=== PATIENT | female | born 1935 | race Caucasian/White ===

== ENCOUNTER 2016-10-03 17:34 | Emergency (ER) | payer MEDICARE, OTHER ==
[2016-10-03 17:53] VITALS: TEMP 99.1; BMI 26.6
[2016-10-03] MEDS ORDERED: MORPHINE 4 MG/ML INJECTION IV ONE (18:25)
[2016-10-03] MEDS ORDERED: ONDANSETRON HCL 4 MG/2 ML VIAL IV ONE (18:25)
[2016-10-03] MEDS ORDERED: NS 1,000 ML IV ONE (18:25)
[2016-10-03 19:10] LABS: AUTOMATED BASOPHIL 0.5 % (0-2); AUTOMATED EOSINOPHIL 0.7 % (0-5); AUTOMATED MONOCYTE 5.7 % (3-10); AUTOMATED NEUTROPHIL 78.1 % (45-76)
[2016-10-03 19:16] LABS: BLOOD UREA NITROGEN 14 MG/DL (7-17); CALC CORRECTED 8.9 MG/DL (8.4-10.2); CALCIUM 8.6 MG/DL (8.4-10.2); CALCULATED OSMOLALITY 258 MOs/Kg (270-290); CHLORIDE 96 mEq/L (98-107); CPK TOTAL WITH POSSIBLE MB 77 IU/L (30-134); GLUCOSE 143 mg/dL (70-99); PARTIAL THROMB. TIME 24.6 SEC (22-35); SODIUM LEVEL 132 mEq/L (137-146); TOTAL PROTEIN 6.6 G/DL (6.3-8.2)
--- NOTE | 2016-10-03 19:46 | DIRPT ---
CLINICAL DATA: Left calf pain for 1 month. Swelling for 2 weeks. EXAM: LEFT LOWER EXTREMITY VENOUS DOPPLER ULTRASOUND TECHNIQUE: Zhou-scale sonography with graded compression, as well as color Doppler and duplex ultrasound were performed to evaluate the lower extremity deep venous systems from the level of the common femoral vein and including the common femoral, femoral, profunda femoral, popliteal and calf veins including the posterior tibial, peroneal and gastrocnemius veins when visible. The superficial great saphenous vein was also interrogated. Spectral Doppler was utilized to evaluate flow at rest and with distal augmentation maneuvers in the common femoral, femoral and popliteal veins. COMPARISON: None. FINDINGS: Contralateral Common Femoral Vein: Respiratory phasicity is normal and symmetric with the symptomatic side. No evidence of thrombus. Normal compressibility. Common Femoral Vein: No evidence of thrombus. Normal compressibility, respiratory phasicity and response to augmentation. Saphenofemoral Junction: No evidence of thrombus. Normal compressibility and flow on color Doppler imaging. Profunda Femoral Vein: No evidence of thrombus. Normal compressibility and flow on color Doppler imaging. Femoral Vein: No evidence of thrombus. Normal compressibility, respiratory phasicity and response to augmentation. Popliteal Vein: No evidence of thrombus. Normal compressibility, respiratory phasicity and response to augmentation. Calf Veins: No evidence of thrombus. Normal compressibility and flow on color Doppler imaging. Superficial Great Saphenous Vein: No evidence of thrombus. Normal compressibility and flow on color Doppler imaging. Venous Reflux: None. Other Findings: There is subcutaneous edema in the left calf in the area of clinical concern. IMPRESSION: No evidence of left lower extremity deep venous thrombosis. Soft tissue edema in the calf in the area of clinical concern. Electronically Signed By: Angie Swain M.D. On: 10/03/2016 19:43
[2016-10-03 20:23] VITALS: BP 139/66; PULSE 81
[2016-10-03 20:31] LABS: LEUKOCYTES/URINE TRACE (NEGATIVE); RBC/URINE 0-2 (0-5); URINE OCCULT BLOOD NEG (NEG/TRACE)
[2016-10-03 20:34] LABS: NITRITE/URINE POS (NEGATIVE)
[2016-10-03] MEDS ORDERED: CEFTRIAXONE 1 GM in D5W 100 ML IV ONE (20:35)
--- NOTE | 2016-10-03 20:39 | EDPRACDOC ---
- General Information Chief Complaint: Lower Leg Pain Stated Complaint: LT LEG PAIN & SWELLING NO RECENT INJURY Time Seen by Provider: 10/03/16 18:18 Information Source: Patient Mode Of Arrival: Car Home Medications: Home Medications Cholecalciferol [Vitamin D3 (cholecalciferol)] 1,000 units PO DAILY 06/23/13 Flaxseed Oil [Flax Seed Oil] 2,000 mg PO TID 06/23/13 Omeprazole [Prilosec] 40 mg PO DAILY 06/23/13 Aspirin (Enteric Coated) [Halfprin] 81 mg PO DAILY 07/22/14 Calcium Carbonate [Caltrate 600] 600 mg PO BID 07/22/14 Ginkgo Biloba 120 mg PO DAILY 07/22/14 Pramipexole Di-HCl [Mirapex] 1 - 2 mg PO HS 07/22/14 Verapamil HCl [Verelan Pm] 300 mg PO DAILY 07/22/14 Vitamins, Multiple [Unicap] 1 cap PO DAILY 07/22/14 Duloxetine HCl 60 mg PO DAILY 11/27/15 Gabapentin 400 mg PO QHS 11/27/15 Losartan Potassium 50 mg PO DAILY 11/27/15 Tramadol HCl 50 mg PO DAILY PRN 11/27/15 Vitamin E Mixed [Vitamin E] 1,000 unit PO DAILY 11/27/15 Cephalexin Monohydrate [Keflex] 500 mg PO Q6H #28 cap 10/03/16 Levothyroxine [Synthroid, Levoxyl] 50 mcg PO DAILY 10/03/16 Prednisone [Sterapred] 5 mg PO DIR 10/03/16 Tramadol HCl [Ultram] 50 mg PO Q6H #14 tab 10/03/16 Allergies/Adverse Reactions: Allergies Allergy/AdvReac Type Severity Reaction Status Date / Time Sulfa (Sulfonamide Allergy Unknown Rash-Genera Verified 07/22/14 20:43 Antibiotics) lized dextromethorphan Allergy Unknown Verified 11/27/15 14:38 doxylamine Allergy Unknown Verified 11/27/15 14:38 NSAIDS (Non-Steroidal Allergy See Verified 07/23/14 18:37 Anti-Inflamma Comments promethazine HCl AdvReac Confusion Verified 07/22/14 20:43 [From Phenergan] - History of Present Illness Onset: JULY HPI: PT PRESENTS WITH LEFT LOWER LEG SWELLING, REDNESS AND PAIN. STATES THIS HAS BEEN ONGOING FOR SEVERAL MONTHS. STATES SHE HAS BEEN SEEN BY A DOCTOR AT [place] WHO INJECTED THE KNEE BUT THE PAIN IS NOT GETTING ANY BETTER. DENIES FEVER, CHILLS, NAUSEA OR VOMITING Mechanism: Reports: Unknown Circumstances: Reports: Unknown History of: Reports: None Last Tetanus: Unknown Severity: Reports: Moderate Able to Bear Weight: Limited Associated Signs & Symptoms: Reports: Swelling Pain In: Reports: Foot, Ankle, Leg ED Past Medical History - History Reviewed Yes Nurses notes reviewed and agree except as marked - Patient Medical History Cardiac History: Reports: Hypertension, Valvular Heart Disease, Syncope Respiratory History: Reports: Emphysema (?) GI/ History: Reports: Urinary Tract Infection Musculoskeletal History: Reports: Arthritis Psychological History: Reports: Anxiety. Denies: Depression, Substance Use Disorder Systemic History: Reports: Cancer (BREAST LUNG , RT MASECTOMY), Anemia, Hypothyroidism Surgical History: Reports: Hysterectomy (Age 60's), Tonsillectomy/Adnoidectomy - Family Medical History Reports: Hypertension (Mother), Diabetes (Brothers), Cancer (2 Sisters-breast, Mother), Stroke (Mother), Cardiac Disorders (Brothers, Sisters) - Social Medical History Smoking Status: Never smoker Social History: Denies: Substance Use Disorder EDM Review of Systems - Review of Systems ROS Negative Except as Marked: Yes All systems reviewed and were negative except as marked - Physical Exam Constitutional: Alert Oriented to: Time, Person, Place Last recorded Vital Signs: Last Vital Signs Temp 99.1 F 10/03/16 17:43 Pulse 81 10/03/16 20:23 Resp 20 10/03/16 20:23 BP 139/66 10/03/16 20:23 Pulse Ox 93 10/03/16 20:23 Oxygen Pulse Oxygen Saturation 93 O2 Device Room Air Oxygen Flow Rate Fraction of Inspired Oxygen ( FIO2) - HEENT Head: Normal ( normocephalic) Eye Exam: Normal (PERRL, EOMI, Sclera white) Oropharynx: Normal (Pharynx:Moist without exudate,Gums-no swelling) Tympanic Membrane: Normal Nose: No Symptoms Reported (septum midline) Neck: Normal (FROM, trachea at midline) - Respiratory/Cardiovascular Respiratory: Normal - CTA (BBS clear to auscultation without adventitious sounds ) Cardiovascular: Normal (RRR without murmur, gallop or rub) - GI Auscultation: Normal (NABS) Palpation: Normal (Soft,No rebound or guarding, non distended) Tenderness: Non tender Molina's Sign: Negative Rectal Exam: Deferred - Musculoskeletal Back: Normal (Non-Tender) Extremities: Pedal Edema (2+ PITTING), Pedal Pulse (2+) - Integumentary Skin: Normal, Warm, Dry Lymphatics: Normal (no adenopathy) - Neurologic Memory Impaired: Normal Motor Function: Normal (Normal tone, Pulses 2+ No cyanosis or edema, FROM) Cranial Nerve: Normal (CN II-X11 intact sensation, strength 5/5) Cerebellar: Normal Mood Description: Normal Perception: Normal - Differential Diagnosis Other - Results 10/03/16 18:42 10/03/16 18:42 WBC 10.0 xk/uL (3.8-10.8) 10/03/16 18:42 RBC 4.04 xM/uL (4.20-5.40) L 10/03/16 18:42 Hgb 11.6 g/dL (12.0-16.0) L 10/03/16 18:42 Hct 34.6 % (36-47) L 10/03/16 18:42 MCV 86 fL (81-99) 10/03/16 18:42 MCH 28.6 pg (27-32) 10/03/16 18:42 MCHC 33.4 g/dl (33-36) 10/03/16 18:42 RDW 14.4 % (11.5-14.5) 10/03/16 18:42 Plt Count 284 xk/uL (130-400) 10/03/16 18:42 MPV 7.0 fL (7.4-10.4) L 10/03/16 18:42 Neut % (Auto) 78.1 % (45-76) H 10/03/16 18:42 Lymph % (Auto) 15.0 % (17-44) L 10/03/16 18:42 [place] % (Auto) 5.7 % (3-10) 10/03/16 18:42 Eos % (Auto) 0.7 % (0-5) 10/03/16 18:42 Baso % (Auto) 0.5 % (0-2) 10/03/16 18:42 Absolute Neuts (auto) 7.80 xk/uL (1.7-8.2) 10/03/16 18:42 Absolute Lymphs (auto) 1.50 xk/uL (0.65-4.75) 10/03/16 18:42 PT 10.4 SEC (9.2-11.2) 10/03/16 18:42 INR 1.0 10/03/16 18:42 APTT 24.6 SEC (22-35) 10/03/16 18:42 Sodium 132 mEq/L (137-146) L 10/03/16 18:42 Potassium 4.1 mEq/L (3.5-5.1) 10/03/16 18:42 Chloride 96 mEq/L (98-107) L 10/03/16 18:42 Carbon Dioxide 26 mMOL/L (22-33) 10/03/16 18:42 Anion Gap 14 mEq/L (8-16) 10/03/16 18:42 BUN 14 MG/DL (7-17) 10/03/16 18:42 Creatinine 0.70 MG/DL (0.52-1.04) 10/03/16 18:42 Estimated GFR (MDRD) > 60 mL/min (>=60) 10/03/16 18:42 Glucose 143 mg/dL (70-99) H 10/03/16 18:42 Calculated Osmolality 258 MOs/Kg (270-290) L 10/03/16 18:42 Calcium 8.6 MG/DL (8.4-10.2) 10/03/16 18:42 Corrected Calcium 8.9 MG/DL (8.4-10.2) 10/03/16 18:42 Total Bilirubin 0.4 MG/DL (0.2-1.3) 10/03/16 18:42 AST 27 IU/L (14-36) 10/03/16 18:42 ALT 29 IU/L (9-52) 10/03/16 18:42 Alkaline Phosphatase 135 IU/L (55-165) 10/03/16 18:42 Creatine Kinase 77 IU/L (30-134) 10/03/16 18:42 Troponin I < 0.01 ng/mL (<.04) 10/03/16 18:42 Cxc-R-[id number] Pept 151 pg/mL (0-1800) 10/03/16 18:42 Total Protein 6.6 G/DL (6.3-8.2) 10/03/16 18:42 Albumin 3.7 G/DL (3.5-5.0) 10/03/16 18:42 Urine Color Pale yellow 10/03/16 20:15 Urine Clarity Clear 10/03/16 20:15 Urine pH 7.0 (5.0-8.0) 10/03/16 20:15 Ur Specific [place] 1.005 (1.003-1.035) 10/03/16 20:15 Urine Protein Neg (NEG/TRACE) 10/03/16 20:15 Urine Glucose (UA) Neg (NEGATIVE) 10/03/16 20:15 Urine Ketones Neg (NEGATIVE) 10/03/16 20:15 Urine Occult Blood Neg (NEG/TRACE) 10/03/16 20:15 Urine Nitrite Pos (NEGATIVE) H 10/03/16 20:15 Urine Bilirubin Neg (NEGATIVE) 10/03/16 20:15 Urine Urobilinogen <2.0 MG/DL (0-1) 10/03/16 20:15 Ur Leukocyte Esterase Trace (NEGATIVE) H 10/03/16 20:15 Urine RBC 0-2 (0-5) 10/03/16 20:15 Urine WBC 2-5 (0-5) 10/03/16 20:15 Ur Epithelial Cells 1+ 10/03/16 20:15 Urine Bacteria 2+ (NEG/FEW) H 10/03/16 20:15 Lab Results 10/03/16 10/03/16 10/03/16 20:15 18:42 18:42 WBC 10.0 RBC 4.04 L Hgb 11.6 L Hct 34.6 L MCV 86 MCH 28.6 MCHC 33.4 RDW 14.4 Plt Count 284 MPV 7.0 L Neut % (Auto) 78.1 H Lymph % (Auto) 15.0 L [place] % (Auto) 5.7 Eos % (Auto) 0.7 Baso % (Auto) 0.5 Absolute Neuts (auto) 7.80 Absolute Lymphs (auto) 1.50 PT 10.4 INR 1.0 APTT 24.6 Sodium Potassium Chloride Carbon Dioxide Anion Gap BUN Creatinine Estimated GFR (MDRD) Glucose Calculated Osmolality Calcium Corrected Calcium Total Bilirubin AST ALT Alkaline Phosphatase Creatine Kinase Troponin I [id number] Pept Total Protein Albumin Urine Color Pale yellow Urine Clarity Clear Urine pH 7.0 Ur Specific [place] 1.005 Urine Protein Neg Urine Glucose (UA) Neg Urine Ketones Neg Urine Occult Blood Neg Urine Nitrite Pos H Urine Bilirubin Neg Urine Urobilinogen <2.0 Ur Leukocyte Esterase Trace H Urine RBC 0-2 Urine WBC 2-5 Ur Epithelial Cells 1+ Urine Bacteria 2+ H 10/03/16 18:42 WBC RBC Hgb Hct MCV MCH MCHC RDW Plt Count MPV Neut % (Auto) Lymph % (Auto) [place] % (Auto) Eos % (Auto) Baso % (Auto) Absolute Neuts (auto) Absolute Lymphs (auto) PT INR APTT Sodium 132 L Potassium 4.1 Chloride 96 L Carbon Dioxide 26 Anion Gap 14 BUN 14 Creatinine 0.70 Estimated GFR (MDRD) > 60 Glucose 143 H Calculated Osmolality 258 L Calcium 8.6 Corrected Calcium 8.9 Total Bilirubin 0.4 AST 27 ALT 29 Alkaline Phosphatase 135 Creatine Kinase 77 Troponin I < 0.01 Iol-[id number]-Ccdkqnhwpvp Pept 151 Total Protein 6.6 Albumin 3.7 Urine Color Urine Clarity Urine pH Ur Specific [place] Urine Protein Urine Glucose (UA) Urine Ketones Urine Occult Blood Urine Nitrite Urine Bilirubin Urine Urobilinogen Ur Leukocyte Esterase Urine RBC Urine WBC Ur Epithelial Cells Urine Bacteria - EKG EKG #1 EKG Time: 20:07 -: Yes EKG interpreted by me Rate: bpm: 82 [place]: Normal Rhythm: NSR Block: None Hypertrophy: None ST: Normal Decision Time to Discharge: 21:35 - Departure Disposition: Home Condition: Stable Final Diagnosis: Cellulitis Qualifiers: Site of cellulitis: extremity Site of cellulitis of extremity: lower extremity Laterality: left Qualified Code(s): L03.116 - Cellulitis of left lower limb Osteoarthritis Qualifiers: Osteoarthritis location: knee Osteoarthritis type: unspecified Laterality: left Qualified Code(s): M17.12 - Unilateral primary osteoarthritis, left knee Instructions: Cellulitis (ED), Osteoarthritis (ED) Education/Counseling Given To: Patient Education/Counseling Given Regarding: Diagnosis, Treatment, Prognosis, Follow Up Referrals: Adriano Raman MD [Primary Care Provider] - One Week Federico Dowling DO [Staff Physician] - One Week Prescriptions: New Cephalexin Monohydrate [Keflex] 500 mg PO Q6H #28 cap Tramadol HCl [Ultram] 50 mg PO Q6H #14 tab No Action Flaxseed Oil [Flax Seed Oil] 2,000 mg PO TID Cholecalciferol [Vitamin D3 (cholecalciferol)] 1,000 units PO DAILY Omeprazole [Prilosec] 40 mg PO DAILY Calcium Carbonate [Caltrate 600] 600 mg PO BID Vitamins, Multiple [Unicap] 1 cap PO DAILY Aspirin (Enteric Coated) [Halfprin] 81 mg PO DAILY Pramipexole Di-HCl [Mirapex] 1 - 2 mg PO HS Verapamil HCl [Verelan Pm] 300 mg PO DAILY Ginkgo Biloba 120 mg PO DAILY Vitamin E Mixed [Vitamin E] 1,000 unit PO DAILY Tramadol HCl 50 mg PO DAILY PRN PRN Reason: Pain Losartan Potassium 50 mg PO DAILY Gabapentin 400 mg PO QHS Duloxetine HCl 60 mg PO DAILY Levothyroxine [Synthroid, Levoxyl] 50 mcg PO DAILY Prednisone [Sterapred] 5 mg PO DIR Additional Instructions: ICE AND ELEVATION IS VERY IMPORTANT. FOLLOW UP WITH ORTHOPEDIC NEXT WEEK. FOLLOW UP WITH PCP NEXT WEEK. RETURN TO THE ED FOR WORSENING SYMPTOMS OR CONCERNS
--- NOTE | 2016-10-03 20:42 | DIRPT ---
CLINICAL DATA: LEFT lower leg swelling and pain EXAM: CHEST 2 VIEW COMPARISON: Chest CT 08/13/2015, radiograph 01/28/2016 FINDINGS: Cardiac silhouette is mildly enlarged. No effusion, infiltrate pneumothorax. Calcified granuloma noted in the RIGHT middle lobe. Calcified LEFT upper lobe and RIGHT upper lobe nodules again demonstrated. RIGHT breast prosthetic noted. IMPRESSION: No acute cardiopulmonary process. Electronically Signed By: Mak Perez M.D. On: 10/03/2016 20:39
--- NOTE | 2016-10-03 21:23 | DIRPT ---
CLINICAL DATA: Lower extremity leg swelling and pain with redness. Pain for several months. Bilateral hip pain. EXAM: BILATERAL HIP (WITH PELVIS) 3-4 VIEWS COMPARISON: None. FINDINGS: Hips are located. No acute pelvic fracture or sacral fracture. Dedicated view of the LEFT or RIGHT hip demonstrates no femoral neck fracture. Vertebroplasty augmentation in the sacrum. IMPRESSION: No acute findings in the pelvis. No fracture or dislocation Electronically Signed By: Mak Perez M.D. On: 10/03/2016 21:21
--- NOTE | 2016-10-03 21:25 | DIRPT ---
CLINICAL DATA: Left lower leg swelling and redness with pain. EXAM: LEFT KNEE - COMPLETE 4+ VIEW COMPARISON: 09/29/2016 FINDINGS: Stable small joint effusion. No fracture, erosion, or subluxation. No evidence of focal bone lesion. Diffuse degenerative joint narrowing with marginal spurring. Limited AP projection. Osteopenia and atherosclerosis. IMPRESSION: 1. Small joint effusion without acute osseous finding. 2. Osteoarthritis. Electronically Signed By: Tolu Prado M.D. On: 10/03/2016 21:22
== END 2016-10-03 21:52 | disposition home or self-care (01) ==
LOC: ED 17:34
DX: L03.116 Cellulitis of left lower limb (principal); M17.12 Unilateral primary osteoarthritis, left knee
CPT/HCPCS: 36415; 71020; 73521; 73564; 80053; 81001; 82550; 83880; 84484; 85025; 85610; 85730; 93005; 93971; 96361; 96365; 96375; 99283; J0696; J2270; J2405; J7060